=== PATIENT | female | born 1990 | race Caucasian/White ===

== ENCOUNTER 2017-08-21 09:21 | Inpatient (IN) | payer OTHER ==
[2017-08-21] MEDS ORDERED: LR 1,000 ML IV (10:36)
[2017-08-21] MEDS: LACTATED RINGER'S 1000 ML IV (11:10)
[2017-08-21 11:19] LABS: HEMATOCRIT 32.5 % (36.0-47.0); HEMOGLOBIN 10.6 g/dl (12.0-16.0); MEAN CORPUSCULAR HEMOGLOBIN 27.9 pg (27.0-33.0); MEAN CORPUSCULAR HGB CONC 32.6 g/dl (32.0-36.5); MEAN CORPUSCULAR VOLUME 85.5 fl (80.0-96.0); PLATELET COUNT, AUTOMATED 341 10^3/uL (150-450); RED CELL DISTRIBUTION WIDTH 12.3 % (11.5-14.5); WHITE BLOOD COUNT 10.1 10^3/uL (4.0-10.0)
[2017-08-21] MEDS: OXYTOCIN DRIP 30 UNITS in APPROPRIATE DILUENT 1 EA IV (11:25)
[2017-08-21 11:39] LABS: AMPHETAMINES URINE REFLEX NEGATIVE (NEGATIVE); BARBITURATES URINE REFLEX NEGATIVE (NEGATIVE); BENZODIAZEPINES URINE REFLEX NEGATIVE (NEGATIVE); CANNABINOIDS URINE REFLEX NEGATIVE (NEGATIVE); COCAINE METABOLITE URINE REFLE NEGATIVE (NEGATIVE); METHADONE URINE REFLEX NEGATIVE (NEGATIVE); OPIATES URINE REFLEX NEGATIVE (NEGATIVE); PHENCYCLIDINE URINE REFLEX NEGATIVE (NEGATIVE)
[2017-08-21] MEDS: LR 1,000 ML IV (12:31)
[2017-08-21] MEDS ORDERED: FENTANYL 2MCG/ML ROPIVACAINE 0.2% IN 0.9% NACL 200ML IVBAG As Ordered (16:03)
[2017-08-21] MEDS ORDERED: LACTATED RINGER'S 1000 ML IV (18:15)
[2017-08-21] MEDS ORDERED: FENTANYL/ROPIVACAINE/NACL BAG 200 ML EPIDURAL (18:15)
[2017-08-21] MEDS ORDERED: REFRIGERATOR IV KEYS XX (18:15)
[2017-08-21] MEDS ORDERED: ONDANSETRON 4MG/2ML VIAL (J2405) IV (18:15)
[2017-08-21] MEDS ORDERED: NALOXONE INJ 0.4 MG/1 ML VIAL (J2310) IV (18:15)
[2017-08-21] MEDS ORDERED: EPIDURAL/PCA KEYS XX (18:15)
[2017-08-21] MEDS ORDERED: diphenhydrAMINE INJ 50MG/ML VIAL (J1200) IV (18:15)
[2017-08-21] MEDS ORDERED: ePHEDrine SULFATE 25 MG/5 ML(5MG/ML) SYRINGE IV (18:15)
[2017-08-21] MEDS ORDERED: EPIDURAL COMMENT XX (18:15)
[2017-08-21] MEDS ORDERED: OXYTOCIN DRIP 30 UNITS in APPROPRIATE DILUENT 1 EA IV (22:40)
[2017-08-21] MEDS ORDERED: DIBUCAINE 1% OINTMENT 30GM TOP (22:45)
[2017-08-21] MEDS ORDERED: RHOGAM 300 MCG (1500 IU) INJ (J2790) IM (22:45)
[2017-08-21] MEDS ORDERED: METOCLOPRAMIDE INJ 10MG/2ML VIAL (J2765) IV (22:45)
[2017-08-21] MEDS ORDERED: MEASLES,MUMPS,RUBELLA VACCINE INJ (MMR-II) (90707) SC (22:45)
[2017-08-22] MEDS: IBUPROFEN 800 MG TAB PO ×2 (00:08→21:04)
[2017-08-22] MEDS: DOCUSATE SODIUM 100 MG CAP PO ×2 (09:00→21:00)
[2017-08-22] MEDS: PRENATAL VITAMINS CHEWABLE TABLET PO (09:00)
[2017-08-23] MEDS: PRENATAL VITAMINS CHEWABLE TABLET PO (09:33)
[2017-08-23] MEDS: DOCUSATE SODIUM 100 MG CAP PO ×2 (09:33→20:11)
[2017-08-23] MEDS: IBUPROFEN 800 MG TAB PO (15:44)
[2017-08-23] MEDS: ACETAMINOPHEN TAB 650MG DOSE (2X325MG) PO (21:02)
[2017-08-24] MEDS: PRENATAL VITAMINS CHEWABLE TABLET PO (07:37)
[2017-08-24] MEDS: DOCUSATE SODIUM 100 MG CAP PO (07:38)
[2017-08-24] MEDS: IBUPROFEN 800 MG TAB PO (07:38)
== END 2017-08-24 11:05 | disposition home or self-care (01) | DRG 775 ==
LOC: M LDO 09:21 → M OBS 08-22 00:23 → M LDI 10:14
PROVIDERS: Obstetrics & Gynecology
PROC: 10E0XZZ Delivery of Products of Conception, External Approach (ICD-10-PCS; principal; 2017-08-21)
PROC: 0KQM0ZZ Repair Perineum Muscle, Open Approach (ICD-10-PCS; 2017-08-21)
PROC: 3E033VJ Introduction of Other Hormone into Peripheral Vein, Percutaneous Approach (ICD-10-PCS; 2017-08-21)
DX: O42.02 Full-term premature rupture of membranes, onset of labor within 24 hours of rupture (principal); Z37.0 Single live birth; Z3A.38 38 weeks gestation of pregnancy; O32.6XX0 Maternal care for compound presentation, not applicable or unspecified; O70.1 Second degree perineal laceration during delivery; N81.2 Incomplete uterovaginal prolapse; O34.523 Maternal care for prolapse of gravid uterus, third trimester

== ENCOUNTER → 2019-06-30 | Outpatient (CLI) | payer OTHER ==
[~2019-06-30] MED LIST: COLA100C5 PO; DIBU1OIN TOP; IBUP-1114 PO; PREN1CHW PO; TYLE325T5 PO
--- NOTE | 2019-07-01 07:16 | REP ---
REASON: Cough. PRIORS: None. In the right lower lobe there is either a 9 mm sized parenchymal nodule or there is a small bony lesion involving the anterior aspect of the right 5th rib. Lung wen are otherwise clear. The heart is not enlarged and the pleural angles are sharp. The stomach fundus is gas-filled. The osseous structures are otherwise within normal limits. IMPRESSION: No acute cardiopulmonary disease. Right lung findings as described above. Correlate clinically. If necessary obtain chest CT. Electronically Signed by Loi Yee DO 07/01/2019 09:22 A
== END ==
LOC: M LRY 14:24
PROVIDERS: ATTEND Physician Assistant
DX: R91.1 Solitary pulmonary nodule (principal); R05 Cough
CPT/HCPCS: 71046; 81025; G0463